=== PATIENT | female | born 1990 | race Two or more races ===

== ENCOUNTER → 2024-09-28 | Outpatient (CLI) | payer MEDICAID, SELFPAY ==
--- NOTE | 2024-09-28 13:30 | XR_ITS ---
Examination: Complete OB ultrasound, less than 14 weeks, transabdominal Date and time of exam: September 28, 2024 1535 hours INDICATIONS: Supervision of normal Technique: Obstetrical ultrasound images less than 14 weeks performed via transabdominal imaging Findings: A normal shaped single intrauterine gestation is present in the uterus. pole 6.5 cm corresponds to 12 weeks 6 days gestational age Cardiac motion 158 BPM Ultrasonographic survey of visible and placental structures unremarkable. Amniotic fluid volume appears appropriate for this estimated gestational age. Right ovary 2.8 cm arterial flow 15 mm follicular cyst Left ovary 2.3 cm arterial flow IMPRESSION: Viable intrauterine gestation 12 weeks 6 days.
== END | disposition home or self-care (01) ==
LOC: CDIM 14:57
PROVIDERS: PCP Nurse Practitioner Family; Referring Provider Nurse Practitioner Family; Visit Provider Nurse Practitioner Family
DX: Z34.01 Encounter for supervision of normal first pregnancy, first trimester (principal)
CPT/HCPCS: 76801

== ENCOUNTER 2025-03-27 17:32 | Observation (INO) | payer MEDICAID, SELFPAY ==
[2025-03-27] VITALS (37 sets, daily range): BP systolic 111–133; BP diastolic 63–95; PULSE 69–116; RESP 18–97; TEMP 36.8; O2SAT 97–100; BMI 35.8
--- NOTE | 2025-03-27 19:01 | XR_ITS ---
Examination: Complete OB ultrasound greater than 14 weeks Date and time of exam: March 27, 2025, 1941 hours INDICATIONS: Pelvic contraction and vaginal bleeding today Findings: Viable intrauterine single fetus with single amniotic sac Cephalic presentation Cardiac motion 173 bpm Placenta posterior grade 2 Umbilical cord insertion 3 vessel seen Amniotic fluid index 7.0 cm spine maternal left Cervix 3.1 cm Ovaries obscured by bowel gas. Composite estimated gestational age based on BPD, head circumference, abdominal circumference, femur length is 38 weeks 2 days Estimated weight 3450 g. Survey of intracranial anatomy, spinal anatomy, abdominal anatomy, four-chamber heart performed with no abnormalities identified. Impression: Viable intrauterine gestation in cephalic presentation.
[2025-03-27] MEDS: TERBUTALINE SULF INJ 1 MG/ML VIAL 0.25 MG SC (19:34)
--- NOTE | 2025-03-27 19:42 | ESHP_ITS ---
Documentation for date of: 03/27/25 OB Labor/Induct. HPI History of Present Illness Chief complaint: Painful uterine contractions : 3 Para: 2 Term pregnancies: 2 pregnancies: 0 Living children: 2 History of Abortions: Spontaneous and Elective: 0 History of Vaginal deliveries: 0 History of sections: Yes (x2) History of : No JOSTIN: 04/07/25 Gestational Age (weeks): 38 Gestational Age (days): 3 History of present illness: The patient is a 35-year-old -0-0-2 past obstetrical history significant for x 2 in [place]. She has an unknown uterine scar x 2. She presents to triage at 38-3/7 weeks reporting painful uterine contractions every 2 to 3 minutes per patient 10 out of 10 pain . Patient has a baby with a cardiac defect and was supposed to deliver at [facility]. 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 The plan was to deliver at [facility] and follow with a pediatric immunologist. She had a scheduled repeat C-sec tion at [facility] 04/01/2025 at 39 1/7 weeks. As the patient was extremely uncomfortable, the decision was made to send the pediatric team here and deliver the patient by here. However patient is adamantly refusing a at [place] and does not want to be from her baby . The patient was made aware of the risk of transfer including the risk of abruption and uterine rupture leading to and she still wants to transfer. The transfer request was made at 1940 and accepted by the maternal- medicine specialist in [place]. Of note patient is not bleeding. She is fingertip dilated but is wincing and breathing through her contractions. No loss of fluid or vaginal bleeding. History of Present Dating criteria: other (No records available) Adequate Care: No (No records available) Ultrasounds: abnormal US findings (Cardiac anomaly. No records or echoes or maternal- medicine ultrasounds available) Abnormal ultrasound findings: cardiac anomaly Obstetrical complications: other (Previous x 2 in [place], unknown scar, cardiac anomaly) Narrative: Patient denies any significant past medical history Labs Maternal Blood Type: Unknown Labs: Unknown: RPR, Hepatitis B, Rubella Titre, HIV, Chlamydia, Gonorrhea, Herpes Type 1, Herpes Type 2, Group Beta Strep and Covid-19 Review of Systems Review of Systems Narrative Review of Systems: Patient reports painful uterine contractions starting a couple hours before presentation. No loss of fluids no vaginal bleeding good movement Past Medical History Surgical History SURGICAL: Positive Section (x2) OTHER SURGICAL HX: Previous x 2 unknown scar in [place] Past Medical History Comments PMH COMMENT: Patient denies any chronic past medical history Meds Home Medications and Allergies Allergies Allergy/AdvReac Type Severity Reaction Status Date / Time No Known Allergies Allergy Verified 03/10/24 19:18 OB Exam Physical Exam Vital signs: Temp Pulse Resp BP Pulse Ox 98.3 F 95 18 117/81 98 03/27/25 17:54 03/27/25 19:39 03/27/25 17:54 03/27/25 19:39 03/27/25 19:37 Constitutional Constitutional: mild distress Comments: Closing eyes and breathing a little bit through contractions Routine Cardiovascular Exam Cardiovascular: Present RRR Routine Abdominal Exam Abdominal: Present soft and surgical scars Comments: Vertical scar on abdomen Detailed Labor and Delivery Exam Dilation (cm): Fingertip Effacement (%): Thick Cervix position: posterior station: -3 Consistency: firm Presentation: Vertex monitor accelerations: 15x15 monitor decelerations: None oysterman variability: Moderate (11-25) Contraction frequency (min): Every 2 minutes Contraction duration (sec): 30 Contraction intensity: Moderate OB Assessment & Plan Assessment and Plan (1) Supervision of high risk in third trimester: Status: Acute (2) cardiac anomaly affecting , antepartum: Status: Acute Assessment and plan: Patient with cardiac anomaly. Was scheduled for repeat 04/01/2025 at [facility]. Refuses section here even though she appears to be in early labor. (3) Previous delivery, antepartum condition or complication: Status: Acute Assessment and plan: The patient is 38-3/7 weeks . Previous x 2 with unknown scar in [place]. Vertical skin incision. In early labor. Refusing section here. The patient was offered the have the team to come from [facility] for the baby and have a here, and plans were made for this to happen, but the patient adamantly refuses. Her is at bedside and also adamantly refuses to have the patient deliver here. The risks of the transfer including an ambulance ride to an airport, flying by helicopter to [facility] ect were discussed with a research laboratory manager including the risk of bleeding, uterine rupture, abruption, hypoxia, permanent brain damage of the baby and of both the mother and the baby. Patient wants to be transferred to [facility]. The transport team was called and the transfer accepted at 1940. Additional Plan Additional Plan Comment: Transferred to [facility] (2) cardiac anomaly affecting , antepartum Qualifiers: Fetus number: single or unspecified fetus Qualified Code(s): O35.BXX0 - Maternal care for other (suspected) abnormality and damage, cardiac anomalies, not applicable or unspecified
[2025-03-27 20:27] LABS: Collection Type, Urine Clean Catch
[2025-03-27 20:31] LABS: Basophils # (Auto) 0.0 Thou/mm3 (0.0-0.2); Basophils % (Auto) 0 % (0-2.5); Eosinophils # (Auto) 0.1 Thou/mm3 (0.0-0.5); Eosinophils % (Auto) 1 % (0-10); Hematocrit 39.7 % (36.0-46.0); Hemoglobin 13.7 g/dL (12.0-16.0); Immature Granulocytes Auto 0.06 Thou/mm3 (0.00-0.00); Lymphocytes # (Auto) 1.4 Thou/mm3 (1.0-4.8); Lymphocytes % (Auto) 13 % (10-50); Mean Corpuscular HGB Conc 34.5 g/dl (31.0-37.0); Mean Corpuscular Hemoglobin 31.1 pg (25.0-35.0); Mean Corpuscular Volume 90 fL (80-100); Monocytes # (Auto) 0.5 Thou/mm3 (0.0-0.8); Monocytes % (Auto) 5 % (0-12); Neutrophils # (Auto) 9.0 Thou/mm3 (1.8-7.7); Neutrophils % (Auto) 81 % (37-80); Nucleated Red Blood Cell # 0.00 Thou/mm3 (0.00-0.00); Nucleated Red Blood Cell % 0 /100 WBC (0); Platelet Count 305 Thou/mm3 (140-440); RDW Standard Deviation 42.0 fL (36.4-46.3); Red Blood Count 4.40 Miln/mm3 (4.00-5.20); White Blood Count 11.1 Thou/mm3 (3.6-11.0)
[2025-03-27 20:48] LABS: Alanine Aminotransferase 11 U/L (10-49); Albumin, Serum 4.0 gm/dL (3.5-5.0); Albumin/Globulin Ratio 1.4 (1.2-2.2); Alkaline Phosphatase 98 U/L (46-116); Anion Gap 12 (7-16); Aspartate Amino Transferase 20 U/L (0-34); BUN/Creatinine Ratio 12 Ratio (12-20); Bilirubin,Total 0.6 mg/dL (0.3-1.2); Blood Urea Nitrogen 6 mg/dL (9-23); Calcium 9.8 mg/dL (8.3-10.6); Calcium (Corrected) 9.8 mg/dL (8.5-10.1); Carbon Dioxide 21.3 mMol/L (20.0-31.0); Chloride 104 mMol/L (98-107); Creatinine (Component) 0.5 mg/dL (0.6-1.3); Estimated Creatinine Clearance 157.9 mL/min (>60); Globulin 2.9 gm/dL (2.3-3.5); Glucose 70 mg/dL (74-106); Osmolality,Calculated 269 (275-295); Potassium 3.6 mMol/L (3.4-5.1); Sodium 137 mMol/L (136-145); Total Protein 6.9 gm/dL (5.7-8.2); eGFR > 60 See Note
[2025-03-27 21:12] LABS: HIV (1&2) Antibody Rapid Non-Reactive
[2025-03-27 21:25] LABS: Bacteria,Urine Rare; Bilirubin,Urine Negative (Negative); Blood,Urine Negative (Negative); Clarity,Urine Turbid (Clear/Hazy); Color,Urine Yellow (Lt Yel-Yel); Glucose, Urine Negative (Negative); Ketones,Urine 3+ (Negative); Leukocyte Esterase,Urine Positive (Negative); Nitrite,Urine Negative (Negative); PH,Urine 6.5 (5.0-7.0); Protein,Urine Negative (Neg - Trace); RBC,Urine 1 /hpf (0-3); Specific Gravity,Urine 1.010 (1.001-1.035); Squamous Epithelial Cell,Urine 7 /hpf (0-5); Urobilinogen,Urine Negative mg/dL (0.0-1.0); WBC,Urine 1 /hpf (0-5)
[2025-03-27 23:34] LABS: Hepatitis B Surface Antigen Non Reactive (Non React); Rubella, IgG Antibody Reactive (Immune)
[2025-03-27 23:38] LABS: Syphilis Nonreactive (Nonreactive)
[2025-03-28 10:49] LABS: Chlamydia trachomatis PCR Negative (Not Detect); Neisseria Gonorrhoeae DNA PCR Negative (Not Detect); Trichomonas Negative (Negative)
== END 2025-03-27 21:21 | disposition short-term general hospital (02) ==
PROVIDERS: Admitting Provider Obstetrics & Gynecology; Visit Provider Obstetrics & Gynecology
DX: O35.BXX0 Maternal care for other (suspected) fetal abnormality and damage, fetal cardiac anomalies, not applicable or unspecified (principal); O09.93 Supervision of high risk pregnancy, unspecified, third trimester; Z3A.38 38 weeks gestation of pregnancy
CPT/HCPCS: 36415; 59025; 59899; 76805; 80053; 80307; 81001; 85025; 86703; 86762; 86780; 86850; 86900; 86901; 87340; 87491; 87591; 87661; G0378; J3105